=== PATIENT | female | born 1990 | race Caucasian/White ===

== ENCOUNTER 2019-12-21 23:04 | Emergency (ER) | payer OTHER ==
[~2019-12-21] VITALS: Ht 157.5 cm; Wt 72.6 kg
[2019-12-21 23:15] VITALS: BP_SYST 131
[2019-12-22 01:30] VITALS: BP_SYST 131
== END 2019-12-22 01:30 | disposition home or self-care (01) ==
LOC: SED 23:04
DX: S39.012A Strain of muscle, fascia and tendon of lower back, initial encounter (principal); S93.491A Sprain of other ligament of right ankle, initial encounter; S83.8X1A Sprain of other specified parts of right knee, initial encounter; S16.1XXA Strain of muscle, fascia and tendon at neck level, initial encounter; S70.01XA Contusion of right hip, initial encounter; J45.909 Unspecified asthma, uncomplicated; I10 Essential (primary) hypertension; E78.5 Hyperlipidemia, unspecified; Z79.899 Other long term (current) drug therapy; W01.0XXA Fall on same level from slipping, tripping and stumbling without subsequent striking against object, initial encounter; Y93.89 Activity, other specified; Y92.89 Other specified places as the place of occurrence of the external cause; Y99.8 Other external cause status
CPT/HCPCS: 72040-TC; 72100-TC; 72170-TC; 73564; 81025; 99284